=== PATIENT | female | born 1965 | race Caucasian/White ===

== ENCOUNTER 2017-09-10 06:17 | Day surgery (SDC) | payer BC ==
[~2017-09-10 06:17] MED LIST: Buffered Lidocaine 0.9% SYRIN* 5 ML/SYR SYRINGE INTRADERM ONE
[2017-09-10] MEDS ORDERED: ceFAZolin 2 GM PREMIX (*) 2 GM/50 ML BAG IVPB ONE (06:39)
[2017-09-10] MEDS ORDERED: Buffered Lidocaine 0.9% SYRIN* 5 ML/SYR SYRINGE ONE (06:40)
[2017-09-10] MEDS ORDERED: Lidocaine 1% INJ* 10 MG/ML 30 ML SDV ONE ×2 (07:03→07:10)
[2017-09-10] MEDS ORDERED: Bupivacaine 0.5% SDV PF* 30ML VIAL ONE ×2 (07:03→07:10)
[2017-09-10] MEDS ORDERED: Naloxone* 0.4 MG/ML 1 ML VIAL IV PRN (07:27)
[2017-09-10] MEDS ORDERED: Midazolam* 1 MG/ML 2 ML VIAL (2 MG) ONE ×2 (07:33→08:06)
[2017-09-10] MEDS ORDERED: fentaNYL* 50 MCG/ML 2 ML VIAL (100 MCG VIAL) ONE (07:33)
[2017-09-10] MEDS ORDERED: Propofol* 10 MG/ML 20 ML BTL IV PUSH ONE (07:46)
[2017-09-10] MEDS ORDERED: Lidocaine 2% PF * 5 ML VIAL ONE (07:47)
[2017-09-10] MEDS ORDERED: Ketorolac INJ* 30 MG/ML 1 ML VIAL ONE (08:21)
[2017-09-10] MEDS ORDERED: Labetalol IV* 5 MG/ML 20 ML VIAL ONE (09:16)
[2017-09-10 09:32] VITALS: BP 155/85
--- NOTE | 2017-09-11 09:45 | OP ---
DATE OF OPERATION: 09/10/17 - [facility] DATE OF : 61 SURGEON: Kevin Harrison MD CORE SHAPER: Kimberli Lima NP ANESTHESIOLOGIST: Dr. Sushant Caraballo. ANESTHESIA: Local with general. PRE-OP DIAGNOSIS: Umbilical hernia. POST-OP DIAGNOSIS: Umbilical hernia. OPERATIVE PROCEDURE: Open primary repair of umbilical hernia. ESTIMATED BLOOD LOSS: Minimal. WOUND CLASSIFICATION: 1. COMPLICATIONS: None. DRAINS: None. MESH USED: None. SPECIMENS: None. DESCRIPTION OF PROCEDURE: Written and informed consent was obtained, the abdomen was marked with indelible ink and preoperative antibiotics were administered. The patient was taken to the operating room and placed in the supine position. Sequential compression devices and a warming blanket were applied. The abdomen was prepped and draped in the usual sterile fashion. Time-out verification was completed. 1% lidocaine mixed with 0.25% Marcaine was infiltrated extensively around the umbilicus and a semicircular incision was made just inferior to the umbilicus, carried down to the subcutaneous tissue to the anterior fascia. There was a large amount of protuberant fat extending up into the subcutaneous base and we dissected the skin off the top of this and this revealed an 1 cm fascial defect and the fat appeared to be mainly all preperitoneal fat. The fascial defect was so small that I was not able to reduce the fat. Thus I excised this and cauterized the base and removed the fat in the subcutaneous space and this allowed the remainder of the fat to be reduced back into the preperitoneal space. The fascia appeared to be healthy and the fascial defect was no more than 1 cm in size. I did "button hole" some of the skin of the umbilical stalk and I closed this from the inside with an interrupted 3-0 Vicryl suture. The fascial defect was then closed with 3 separate transversely oriented interrupted 0-Vicryl sutures and this came together nicely with no undue tension. Hemostasis was assured. Additional Marcaine was infiltrated. The wound was closed in layers with 3-0 and 4-0 Vicryl sutures. Steri-Strips and sterile dressings were applied. The patient tolerated the procedure well and was taken to the recovery room in stable condition. [id number]/[facility]: [id number] [facility] [place]
== END 2017-09-10 09:40 | disposition home or self-care (01) ==
LOC: OR 06:17
PROVIDERS: ATTEND Surgery
DX: K42.9 Umbilical hernia without obstruction or gangrene (principal)
CPT/HCPCS: J0690; J1885; J2250; J2704; J3010